=== PATIENT | female | born 1990 | race African-American/Black ===

== ENCOUNTER 2020-11-18 19:47 | Emergency (ER) | payer MEDICAID ==
[~2020-11-18] VITALS: Ht 175.3 cm; Wt 79.5 kg
[2020-11-18] MEDS ORDERED: TraMADol HCL 50 MG TABLET PO ONE (21:15)
[2020-11-18] MEDS ORDERED: IBUPROFEN 600 MG TABLET PO ONE (21:15)
[2020-11-18 22:10] VITALS: BP 119/62
== END 2020-11-18 22:30 | disposition home or self-care (01) ==
LOC: EMS 19:50
DX: S63.502A Unspecified sprain of left wrist, initial encounter (principal); X50.9XXA Other and unspecified overexertion or strenuous movements or postures, initial encounter; Y93.89 Activity, other specified; Y92.89 Other specified places as the place of occurrence of the external cause; Y99.8 Other external cause status
CPT/HCPCS: 99283